=== PATIENT | male | born 1960 | race Caucasian/White ===

== ENCOUNTER 2019-09-21 07:44 | Outpatient (CLI) | payer OTHER, SELFPAY ==
[2019-09-21 09:01] LABS: Hematocrit 57.3 % (42.0-52.0); Hemoglobin 19.2 g/dL (14.0-18.0)
[2019-09-21 09:44] LABS: Prostate Specific Antigen 1.5 ng/mL (< OR = 4.0)
[2019-09-23 10:05] LABS: Testosterone Total 792 ng/dL (250-1100)
[2019-09-26 22:41] LABS: Estradiol, Ultrasensitive 66 pg/mL (< OR = 29)
== END 2019-09-21 07:45 | disposition home or self-care (01) ==
PROVIDERS: Visit Provider Urology
DX: E29.1 Testicular hypofunction (principal); Z80.42 Family history of malignant neoplasm of prostate
CPT/HCPCS: 36415; 82670; 84153; 84403; 85014; 85018

== ENCOUNTER 2020-10-25 08:29 | Outpatient (CLI) | payer OTHER, SELFPAY ==
--- NOTE | 2020-10-25 08:45 | ECG_ITS ---
Measurements Intervals [place] Rate: 97 P: 60 ME: 176 QRS: -12 QRSD: 97 T: -15 QT: 331 QTc: 421 Interpretive Statements SINUS RHYTHM VOLTAGE CRITERIA FOR LVH BORDERLINE R WAVE PROGRESSION, ANTERIOR LEADS INFERIOR INFARCT, AGE INDETERMINATE BASELINE ARTIFACT- I, III, AVL, AVF ABNORMAL ECG Electronically Signed On 10-25-2020 8:55:47 CDT by Lv Abraham D.O.
[2020-10-25 09:48] LABS: Anion Gap 8 mmol/L (8-16); Blood Urea Nitrogen 18 mg/dL (9-20); Calcium 9.8 mg/dL (8.4-10.2); Carbon Dioxide 29 mmol/L (22-30); Chloride 99 mmol/L (98-107); Estimated Glomerular Filt Rate > 60; Glucose 276 mg/dL (75-110); Sodium 136 mmol/L (137-145)
== END 2020-10-25 08:30 | disposition home or self-care (01) ==
LOC: ANHSURGERY 08:34
PROVIDERS: Anesthesiology; PCP Family Medicine Sports Medicine; Visit Provider Urology
DX: Z01.818 Encounter for other preprocedural examination (principal); N21.0 Calculus in bladder; E11.9 Type 2 diabetes mellitus without complications; I10 Essential (primary) hypertension; I25.2 Old myocardial infarction
CPT/HCPCS: 36415; 80048; 87077; 87086; 87088; 93005

== ENCOUNTER → 2020-10-29 02:02 | Outpatient (CLI) | payer OTHER, SELFPAY ==
[2020-10-29 20:22] LABS: SARS-CoV-2 RNA PCR Negative
== END ==
PROVIDERS: PCP Family Medicine Sports Medicine; Visit Provider Urology
DX: Z01.812 Encounter for preprocedural laboratory examination (principal); Z20.822 Contact with and (suspected) exposure to COVID-19
CPT/HCPCS: C9803; U0003; U0005

== ENCOUNTER 2020-11-02 00:58 | Day surgery (SDC) | payer OTHER, SELFPAY ==
[2020-10-21 15:07] VITALS: BMI 35.6
--- NOTE | 2020-11-01 15:52 | WPDANESEPPF ---
Anes - Initial Pre Proc Eval Procedure: Operation Date: 11/02/20 12:00 Proposed Procedures p Cystoscopy, Bladder Stone Lithopaxy - Zeeshan Nuñez MD Date/Time: 11/01/20 15:52 Surgeon: Zeeshan Nuñez MD Pre Op Diagnosis: bladder stone Patient Data Age: 60 Gender: M Height: 1.7 m Weight: 103.18 kg Allergies Allergy/AdvReac Type Severity Reaction Status Date / Time No Known Allergies Allergy Unverified 11/02/20 10:45 Home Medications Medication Instructions Recorded Confirmed Type amlodipine 5 mg PO DAILY 10/21/20 11/02/20 History atorvastatin 20 mg PO DAILY 10/21/20 11/02/20 History lisinopril 40 mg PO DAILY 10/21/20 11/02/20 History metformin 1,000 mg PO BID 10/21/20 11/02/20 History terbinafine HCl 250 mg PO DAILY 10/21/20 11/02/20 History ECG: Date of Service: 10/25/20 Procedure(s): CA 12 lead EKG Accession Number(s): [id number] cc: ~ Measurements Intervals [place] Rate: 97 P: 60 TN: 176 QRS: -12 QRSD: 97 T: -15 QT: 331 QTc: 421 Interpretive Statements SINUS RHYTHM VOLTAGE CRITERIA FOR LVH BORDERLINE R WAVE PROGRESSION, ANTERIOR LEADS INFERIOR INFARCT, AGE INDETERMINATE BASELINE ARTIFACT- I, III, AVL, AVF ABNORMAL ECG Electronically Signed On 10-25-2020 8:55:47 CDT by Lv Abraham D.O. Dictated By: Lv Abraham DO 10/25/20 0855 Patient hx anesthesia problems: none Family hx anesthesia problems: none [facility] Past Medical History Medical History (Updated 11/01/20 @ 15:53 by Jr Jeffrey MD) Diabetes HTN (hypertension) Hypercholesterolemia Obesity Skin cancer Social History Social History Smoking status: Never smoker Drinks per week: 5 Living arrangements: with family Spiritual care concerns: No Anes - Eval Final PreProcedure Day of Procedure 11/01/20 15:52 Patient weight: obese Heart: regular rate and rhythm Lungs: clear to auscultation and normal air movement Airway: Mallampati scale class II Neurological: alert and oriented Last oral intake: >/= 8 hours ASA classification: III Emergent: no Anesthetic plan: proceed Anesthesia type and monitoring: general LMA Informed Consent: The patient's anesthetic plan and its attendant risks and benefits were discussed with the patient/family/POA. Questions were solicited and answers provided to the satisfaction of the patient/family/POA.
[2020-11-02] VITALS (7 sets, daily range): BP systolic 103–150; BP diastolic 62–78; PULSE 68–86; RESP 10–16; TEMP 36.5–37; O2SAT 96–98
[2020-11-02] MEDS: ACETAMINOPHEN 500 MG TABLET 1000 MG PO (10:56)
[2020-11-02] MEDS: LACTATED RINGERS 1,000 ML 30 ML IV CONT (11:16)
[2020-11-02 11:23] LABS: Glucose Point of Care 211 (65-105)
--- NOTE | 2020-11-02 12:17 | WPDHPUPDATE1 ---
History and Physical Update Update Date/Time: 11/02/20 12:17 History and Physical has been reviewed, including an updated exam of the patient. There are NO changes in the patient's condition. Risks, benefits, and alternatives have been discussed and questions answered. Patient agrees to proceed with procedure.
[2020-11-02] MEDS: LIDOCAINE HCL 2% GEL UROJET 10 ML PKG MUCOUS MEM (12:20)
[2020-11-02] MEDS: ceFAZolin 2 GM/D5W 50 ML 2 GM/50 ML BAG IVPB (12:20)
--- NOTE | 2020-11-02 13:32 | PM.PROC ---
Procedure Note - Detailed Date of procedure: 11/02/20 Pre-op diagnosis: bladder stone Post-op diagnosis: same Procedure performed: Cystoscopy, laser litholapaxy Description of procedure: Informed consent was obtained. Patient taken to the operating room. He was given general anesthesia. Prepped draped normal sterile fashion in dorsal supine position. A 22 F cystoscope was inserted through the urethra into the bladder. Upon diagnostic cystoscopy, we encountered bilobar prostatic hyperplasia and a 2cm bladder stone with associated inflammation. There is no tumors noted. Using a laser we fragmented the stone into multiple pieces. Stone fragments were then evacuated using Ellik device. We carefully inspected the bladder and there was no injury from the laser fiber. Patient had bilateral orthotopic ureteral orifices that were not injured. There is no significant residual stone noted. The urine was clear with no flow and therefore we elected not to place a catheter. 10cc of lidocaine were instilled. The patient taken to PACU Anesthesia: MICHELLEA Surgeon: Zeeshan Nuñez MD Drains: No Packing: No Pathology: yes Complications: No immediate complications Condition: stable Disposition: PACU
[2020-11-02 14:44] LABS: Glucose Point of Care 198 (65-105)
== END 2020-11-02 15:35 | disposition home or self-care (01) ==
PROVIDERS: PCP Family Medicine Sports Medicine; Visit Provider Urology
PROC: (CPT 52352; principal; 2020-11-02 12:00)
DX: N21.0 Calculus in bladder (principal); I10 Essential (primary) hypertension; E11.9 Type 2 diabetes mellitus without complications; E78.00 Pure hypercholesterolemia, unspecified; E66.9 Obesity, unspecified; Z68.35 Body mass index [BMI] 35.0-35.9, adult; Z79.84 Long term (current) use of oral hypoglycemic drugs
CPT/HCPCS: 52317; 82365; 88300; A9270; C1769; J0690; J1100; J2250; J2405; J2704; J3010; J7120